=== PATIENT | male | born 1955 | race Caucasian/White ===

== ENCOUNTER 2018-01-24 08:00 | Outpatient (RCR) | payer BC, MEDICARE ==
[2016-11-29 17:23] VITALS: Ht 170.2 cm; Wt 67.2 kg
[2017-11-22 08:50] VITALS: BP 119/75
[2017-11-22] MEDS: ACETAMINOPHEN 325 MG TAB PO PRN (09:29)
[2017-11-22] MEDS: diphenhydrAMINE 25 MG CAP PO PRN (09:29)
[2017-11-22] MEDS: NS(*) 0.9% 500 ML BAG 500 ML IV PRN (09:30)
[2017-11-22] MEDS: HEPARIN FLSH (PORT) 500 UN/5ML IVP PRN (12:21)
[2017-11-22 12:25] VITALS: BP 107/74
--- NOTE | 2017-11-22 17:05 | ONCOLOGY FOLLOW UP NOTE ---
EVENT DATE: November 22, 2017 DIAGNOSES 1. Stage IV mantle cell lymphoma with bone marrow involvement. 2. Status post autologous stem cell transplant. 3. Recurrent diverticulitis. 4. Arthritis. 5. History of colonic polyp, tubulovillous adenoma, status post polypectomy January 2014. 6. History of minimal change disease of the kidney in 2004 with nephrotic syndrome, recovered completely. 7. Left-sided vestibular schwannoma, diagnosed September 2015. CHIEF COMPLAINT Patient is here today for cycle number 10 of maintenance rituximab therapy of his mantle cell lymphoma after autologous stem cell transplant. ONCOLOGY HISTORY The patient is a 61-year-old male who had a history of diverticulitis January 2014 and colonoscopy confirmed diagnosis with the presence of sigmoid mass. The patient was treated with antibiotics. In April 2015, the patient had recurrent left lower quadrant abdominal pain and colonoscopy showed 2 mm cecal polyps which were resected. The pathology came back positive for mantle cell lymphoma. Immunohistochemistry was positive for CD5, cyclin D1, CD20 and negative for CD10, CD23. Ki67 was 30%. Bone marrow aspiration biopsy done April 2015 was positive for 1% mantle cell lymphoma. Cytogenetics was negative. PET-CT scan done April 2015 showed descending colon mass of 6 cm with SUV of 7. The distal sigmoid colon 2.2 cm mass with SUV of 8. Retroperitoneal avid lymph nodes at the level of the left frontal hilum, largest 3 cm with SUV of 4, left inguinal lymph node was SUV2, probable subcapsular focus in the liver, right axillary lymph node with SUV2. The patient was diagnosed with stage 4E mantle cell lymphoma. Hepatitis panel was negative. The patient received chemotherapy with hyper-CVAD between May 2015 through September 2015. In September 2015, the patient developed sudden of left-sided hearing loss, and MRI showed left-sided vestibular schwannoma, and the patient was seen by a neurosurgeon, who recommended close observation and continued treatment for mantle cell lymphoma. His PET/CT scan September 2015 was normal except for left lower quadrant activity increased from recent exam. Previous SUV was 5.2 and the current one was 6.7. The patient had a colonoscopy September 2015 which was normal. His bone marrow aspiration biopsy September 2015 was also normal. September 2015, stem cells were collected and CD34 count was 12 by 10(6) per kg. On October 18, 2015, the patient had his autologous stem cell transplant with R-BEAM and the patient tolerated the transplant well except for rectal pain and bleeding, which resolved prior to discharge from the bone marrow transplant center. They recommended maintenance rituximab therapy after the autologous stem cell transplant. The patient started maintenance rituximab therapy on December 29, 2015. HISTORY OF PRESENT ILLNESS Patient is here today for cycle number 10 of maintenance rituximab therapy for his mantle cell lymphoma after autologous stem cell transplant. Patient is doing really very well currently, except for a flare-up of gout with pain in the left big toe recently. Other than that, he denies any B symptoms and his general condition is really good and stable. PAST MEDICAL HISTORY 1. Mantle cell lymphoma. 2. Recurrent diverticulitis. 3. Arthritis. 4. History of colon polyps. 5. History of minimal change disease of the kidney in 2014 with nephrotic syndrome, recovered completely. 6. Left sided vestibular schwannoma diagnosed September 2015. PAST SURGICAL HISTORY 1. Double hernias as a child. 2. Hernia repair in 2005. SOCIAL HISTORY The patient is . He has three sons and one daughter. He works in home improvement. He denies any abuse of tobacco, alcohol or drugs. He never smoked tobacco. FAMILY HISTORY Negative for cancer or blood diseases. CURRENT MEDICATIONS 1. Acyclovir 200 mg daily. 2. Diflucan 200 mg daily. 3. Probiotic one tablet by mouth every other day alternating with two tablets every other day. 4. Ativan 1 mg two times daily as needed for anxiety. 5. Protonix 40 mg daily. 6. Compazine 10 mg p.r.n. for nausea and vomiting q.6h. 7. Bactrim DS one tablet twice daily, two days per week. 8. Tapering doses of prednisone. ALLERGIES No known drug allergies. REVIEW OF SYSTEMS CONSTITUTIONAL: No appetite or weight change. No fever, chills or sweating. No recent infection. HEENT: Ears: No tinnitus or hearing problem. Nose: No nasal discharge or epistaxis. Throat: No sore throat or mouth ulcers. Eyes: No diplopia or visual changes. RESPIRATORY: No shortness of breath. No cough, expectoration or hemoptysis. CARDIOVASCULAR: No chest pain, orthopnea, or paroxysmal nocturnal dyspnea (PND) . No edema. No palpitations. GASTROINTESTINAL: He has a small bulge above the umbilicus. No nausea or vomiting. No diarrhea or constipation. No change in bowel movements. No heartburn or swallowing difficulties. No abdominal pain. No jaundice. No hematemesis, melena or rectal bleeding. GENITOURINARY: No hematuria or dysuria. MUSCULOSKELETAL: The patient has pain at the left big toe from flare-up of his gout recently . NEUROLOGICAL: He has headache and ringing in the left ear from his vestibular schwannoma on that side. HEMATOLOGIC/LYMPHATIC: No bleeding or easy bruising. No weakness. He has mild fatigue at times. No enlarged lymph nodes. SKIN: No skin rash or lumps. PSYCHIATRIC: No anxiety or depression. PHYSICAL EXAMINATION GENERAL: Looks stable. Well-developed, well-nourished, and in no acute distress. HEENT: Head: Atraumatic. No sinus tenderness to palpation. Eyes: No icterus or conjunctivitis. Mouth and throat: No oral thrush or mucositis. NECK: Supple. No cervical or supraclavicular lymphadenopathy. LUNGS: Clear to auscultation and percussion bilaterally. HEART: Regular rate and rhythm. No gallops, murmurs, clicks or rubs. ABDOMEN: Upper umbilical hernia just above the umbilicus is noted. EXTREMITIES: There is extensive edema of the legs bilaterally. LYMPHATICS: No peripheral lymphadenopathy. NEUROLOGICAL: Conscious, alert and oriented times three. No focal motor or sensory deficits. PSYCHIATRIC: Mood and affect appear normal. SKIN: No skin rash, bruise or purpuric eruption. DIAGNOSTIC DATA CBC showed a white count of 4.2, hemoglobin 16.7, hematocrit 48%, platelets 260, 000. Chem panel totally normal except BUN 27, blood sugar 137. LDH is normal at 501 and uric acid is normal at 5.5. ASSESSMENT 1. Stage IV E mantle cell lymphoma with low risk MIPI score. Patient completed two cycles of hyper-CVAD and attained a PET CT scan, negative complete remission. Subsequently he underwent autologous stem cell transplant after first complete remission, received October 18, 2015 after R-beam chemotherapy. PET CT scan and bone marrow aspiration biopsy done January 2016 were negative for recurrent disease. Patient started maintenance rituximab therapy December 29, 2015. He received nine courses so far and I am planning to proceed with his tenth course today. His general condition is actually much better than before and apart from flare-up of gout of his left big toe, patient does not have any other complaint today. He denies any B symptoms. I am planning to proceed with his rituximab therapy today. I will see him in two months prior to the next dose of rituximab with CBC, chem panel, LDH and uric acid. 2. Flare-up of acute gout of the left big toe. I am planning to start Indomethacin 15 mg three times daily for a few days until pain control. 3. Pulmonary embolism on Eliquis. 4. Schwannoma with cerebral symptoms and ringing of the ear. Patient received radiation therapy without improvement. 5. Recurrent diverticulitis of the colon with perforated colon due to diverticulitis, status post colectomy and taking down the colostomy. He is doing fine currently. 6. History of colon polyps, status post polypectomy in January 2014 for villous adenoma. 7. History of minimal change disease of the kidney and nephrotic syndrome in 2004, in complete remission. PLAN 1. Rituximab maintenance therapy. This will be cycle number 10. 2. Patient is to return in two months with CBC, chem panel, LDH, uric acid. 3. Indomethacin 25 mg three times daily for three to five days until pain control. 4. Patient is to contact us for any new concerns or complaints. MTDD
[~2018-01-24] VITALS: Ht 170.2 cm; Wt 67.2 kg
[~2018-01-24 08:00] MED LIST: ACYC-1 PO; ACYC800T99 PO; ALLO-119 PO; ALLO100T70 PO; ALTEPLASE RECOMB 2 MG VIAL IVP PRN; AMOX-559 PO; AMOX1TAB9 PO; APIX5TAB PO; AZI250 PO; AZIT-17 PO; BLOO-1318 MC; CA C1TAB6 PO; CALC-640 PO; CEP500 PO; CHOL400T24 PO; CIPR-344 PO; CLO10 MT; DEX1 PO; DEX4 PO; DEXTROSE 5%(*) 100 ML BAG 100 ML IVPB PRN; DOCU-416 PO; DOXY-179 PO; FLUC100T39 PO; FLUC200T56 PO; GLUC-198 PO; GUAI1TBM PO; HYDR-385 PO; HYDR-4309 PO; HYDR-6015 PO; HYDR-67 PO; IBUP600T22 PO; INSU100I30 SQ; LACT1CAP6 PO; LACTAID3000 UNI1 PO; LANC-1149 MC; LEVO-85 PO; LIDOCAINE/SOD BICARB 8.4% SYR ID PRN; LOR1; LOR1 PO; LOR5/325 PO; LORA-1456 PO; MELA1TAB24 PO; MELA1TAB27 PO; METH-543 PO; METR-1 PO; MOM PO; MULT1TAB54 PO; NEED1DIS64 MC; NO ROUTINE MEDS; NS(*) 0.9% 100 ML BAG 100 ML IVPB PRN; NYST100040 PO; ONDA4TAB97 PO; ONDA8TAB91 PO; OXYC-373 PO; PANT40TA65 PO; PEN400 PO; POTA20TA10 PO; PRE20 PO; PRE5 PO; PRED50TA22 PO; PROC10TA4 PO; PROC10TA95 PO; PROM-110 PO; SCOT TD; SIME80TA49 PO; SULF-198 PO; TOBROD OU; VALA500T63 PO; VITA-200 PO; WATER STERILE 10 ML VIAL IVP PRN; riTUXimab 500 MG/50 ML SDV 500 MG, riTUXimab 100 MG/10 ML SDV 200 MG in NS(*) 0.9% 1000... IV ONE; riTUXimab 500 MG/50 ML SDV 500 MG, riTUXimab 100 MG/10 ML SDV 200 MG in NS(*) 0.9% 500 ... IV ONE
[2018-01-24 08:23] VITALS: BP 109/83
[2018-01-24] MEDS: NS(*) 0.9% 500 ML BAG 500 ML IV PRN (08:30)
[2018-01-24] MEDS: diphenhydrAMINE 25 MG CAP PO PRN (09:19)
[2018-01-24] MEDS: ACETAMINOPHEN 325 MG TAB PO PRN (09:19)
[2018-01-24] MEDS ORDERED: riTUXimab 500 MG/50 ML SDV 500 MG, riTUXimab 100 MG/10 ML SDV 200 MG in NS(*) 0.9% 500 ... IV ONE (09:20)
[2018-01-24] MEDS: HEPARIN FLSH (PORT) 500 UN/5ML IVP PRN (12:28)
--- NOTE | 2018-01-24 18:50 | ONCOLOGY FOLLOW UP NOTE ---
EVENT DATE: January 24, 2018 DIAGNOSES 1. Stage IV mantle cell lymphoma with bone marrow involvement. 2. Status post autologous stem cell transplant. 3. Recurrent diverticulitis. 4. Arthritis. 5. History of colonic polyp, tubulovillous adenoma, status post polypectomy January 2014. 6. History of minimal change disease of the kidney in 2004 with nephrotic syndrome, recovered completely. 7. Left-sided vestibular schwannoma, diagnosed September 2015. CHIEF COMPLAINT Patient is here today for cycle number 11 of maintenance rituximab therapy of his mantle cell lymphoma after autologous stem cell transplant. ONCOLOGY HISTORY The patient is a 61-year-old male who had a history of diverticulitis January 2014 and colonoscopy confirmed diagnosis with the presence of sigmoid mass. The patient was treated with antibiotics. In April 2015, the patient had recurrent left lower quadrant abdominal pain and colonoscopy showed 2 mm cecal polyps which were resected. The pathology came back positive for mantle cell lymphoma. Immunohistochemistry was positive for CD5, cyclin D1, CD20 and negative for CD10, CD23. Ki67 was 30%. Bone marrow aspiration biopsy done April 2015 was positive for 1% mantle cell lymphoma. Cytogenetics was negative. PET-CT scan done April 2015 showed descending colon mass of 6 cm with SUV of 7. The distal sigmoid colon 2.2 cm mass with SUV of 8. Retroperitoneal avid lymph nodes at the level of the left frontal hilum, largest 3 cm with SUV of 4, left inguinal lymph node was SUV2, probable subcapsular focus in the liver, right axillary lymph node with SUV2. The patient was diagnosed with stage 4E mantle cell lymphoma. Hepatitis panel was negative. The patient received chemotherapy with hyper-CVAD between May 2015 through September 2015. In September 2015, the patient developed sudden of left-sided hearing loss, and MRI showed left-sided vestibular schwannoma, and the patient was seen by a neurosurgeon, who recommended close observation and continued treatment for mantle cell lymphoma. His PET/CT scan September 2015 was normal except for left lower quadrant activity increased from recent exam. Previous SUV was 5.2 and the current one was 6.7. The patient had a colonoscopy September 2015 which was normal. His bone marrow aspiration biopsy September 2015 was also normal. September 2015, stem cells were collected and CD34 count was 12 by 10(6) per kg. On October 18, 2015, the patient had his autologous stem cell transplant with R-BEAM and the patient tolerated the transplant well except for rectal pain and bleeding, which resolved prior to discharge from the bone marrow transplant center. They recommended maintenance rituximab therapy after the autologous stem cell transplant. The patient started maintenance rituximab therapy on December 29, 2015. HISTORY OF PRESENT ILLNESS Patient is here today for cycle number 11 of maintenance rituximab therapy for his mantle cell lymphoma. Patient is doing fine currently, except for catching cold two weeks ago. He has some nasal discharge with cough and expectoration. Other than that he is stable. PAST MEDICAL HISTORY 1. Mantle cell lymphoma. 2. Recurrent diverticulitis. 3. Arthritis. 4. History of colon polyps. 5. History of minimal change disease of the kidney in 2014 with nephrotic syndrome, recovered completely. 6. Left sided vestibular schwannoma diagnosed September 2015. PAST SURGICAL HISTORY 1. Double hernias as a child. 2. Hernia repair in 2005. SOCIAL HISTORY The patient is . He has three sons and one daughter. He works in [employer]. He denies any abuse of tobacco, alcohol or drugs. He never smoked tobacco. FAMILY HISTORY Negative for cancer or blood diseases. CURRENT MEDICATIONS 1. Acyclovir 200 mg daily. 2. Diflucan 200 mg daily. 3. Probiotic one tablet by mouth every other day alternating with two tablets every other day. 4. Ativan 1 mg two times daily as needed for anxiety. 5. Protonix 40 mg daily. 6. Compazine 10 mg p.r.n. for nausea and vomiting q.6h. 7. Bactrim DS one tablet twice daily, two days per week. 8. Tapering doses of prednisone. ALLERGIES No known drug allergies. REVIEW OF SYSTEMS CONSTITUTIONAL: No appetite or weight change. No fever, chills or sweating. No recent infection. HEENT: Ears: No tinnitus or hearing problem. Nose: He has nasal discharge. No epistaxis. Throat: No sore throat or mouth ulcers. Eyes: No diplopia or visual changes. RESPIRATORY: He has cough with expectoration. No shortness of breath. No hemoptysis. CARDIOVASCULAR: No chest pain, orthopnea, or paroxysmal nocturnal dyspnea (PND) . No edema. No palpitations. GASTROINTESTINAL: He has a small bulge above the umbilicus. No nausea or vomiting. No diarrhea or constipation. No change in bowel movements. No heartburn or swallowing difficulties. No abdominal pain. No jaundice. No hematemesis, melena or rectal bleeding. GENITOURINARY: No hematuria or dysuria. MUSCULOSKELETAL: The patient has pain at the left big toe from flare-up of his gout recently . NEUROLOGICAL: He has headache and ringing in the left ear from his vestibular schwannoma on that side. HEMATOLOGIC/LYMPHATIC: No bleeding or easy bruising. No weakness. He has mild fatigue at times. No enlarged lymph nodes. SKIN: No skin rash or lumps. PSYCHIATRIC: No anxiety or depression. PHYSICAL EXAMINATION GENERAL: Looks stable. Well-developed, well-nourished, and in no acute distress. VITAL SIGNS: Blood pressure 109/83, pulse 73 per minute, respirations 16 per minute, temperature 97.6, pulse ox 94% on room air. HEENT: Head: Atraumatic. No sinus tenderness to palpation. Eyes: No icterus or conjunctivitis. Mouth and throat: No oral thrush or mucositis. NECK: Supple. No cervical or supraclavicular lymphadenopathy. LUNGS: Clear to auscultation and percussion bilaterally. HEART: Regular rate and rhythm. No gallops, murmurs, clicks or rubs. ABDOMEN: Upper umbilical hernia just above the umbilicus is noted. EXTREMITIES: There is extensive edema of the legs bilaterally. LYMPHATICS: No peripheral lymphadenopathy. NEUROLOGICAL: Conscious, alert and oriented times three. No focal motor or sensory deficits. PSYCHIATRIC: Mood and affect appear normal. SKIN: No skin rash, bruise or purpuric eruption. DIAGNOSTIC DATA CBC showed a white count of 9.4, hemoglobin 15.3, hematocrit 43.8, platelets 307 ,000. Chem panel totally normal except BUN 23, AST 43, ALT 62 and LDH 755. ASSESSMENT 1. Stage IV E mantle cell lymphoma with low risk MIPI score. Patient completed two cycles of hyper-CVAD and attained a PET CT scan, negative complete remission. Subsequently he underwent autologous stem cell transplant after first complete remission, received October 18, 2015 after R-beam chemotherapy. PET CT scan and bone marrow aspiration biopsy done January 2016 were negative for recurrent disease. Patient started maintenance rituximab therapy December 29, 2015. He received 10 courses so far and I am planning to proceed with his eleventh cycle this time. He has only one cycle left to complete his maintenance rituximab therapy. I am planning to see him again in two months prior to the last cycle of maintenance rituximab therapy with CBC, chem panel, LDH, uric acid. Patient denies any B symptoms and he is doing fine currently. 2. Pulmonary embolism on Eliquis. 3. Schwannoma with cerebral symptoms and ringing of the ear. He received radiation therapy without improvement. 4. Recurrent diverticulitis of the colon with perforated colon due to diverticulitis, status post colectomy and taking down the colostomy. He is doing fine currently. 5. History of colon polyps, status post polypectomy in January 2014 for villous adenoma. 6. History of minimal change disease of the kidney and nephrotic syndrome in 2004, in remission. PLAN 1. Rituximab maintenance therapy. This will be cycle number 11. 2. Patient is to return in two months with CBC, chem panel, LDH, uric acid. 3. Patient is to contact us for any new concerns or complaints. MTDD
== END 2018-02-19 ==
LOC: ONC 08:00
PROVIDERS: ATTEND Internal Medicine Hematology
DX: Z51.11 Encounter for antineoplastic chemotherapy (principal); C83.19 Mantle cell lymphoma, extranodal and solid organ sites; D33.3 Benign neoplasm of cranial nerves; M10.072 Idiopathic gout, left ankle and foot; Z86.010 Personal history of colon polyps; Z94.84 Stem cells transplant status; K57.32 Diverticulitis of large intestine without perforation or abscess without bleeding; M19.90 Unspecified osteoarthritis, unspecified site; Z79.899 Other long term (current) drug therapy; R51 Headache; H93.12 Tinnitus, left ear; K42.9 Umbilical hernia without obstruction or gangrene; R60.0 Localized edema
CPT/HCPCS: 83615; 84550; 85027; 96413; 96415; A9270; J1642; J7040; J9310; Q0163; 82040; 82247; 82310; 82374; 82435; 82565; 82947; 84075; 84132; 84155; 84295; 84450; 84460; 84520

== ENCOUNTER 2018-03-21 08:06 | Outpatient (RCR) | payer MEDICARE ==
[2016-11-29 17:23] VITALS: Ht 170.2 cm; Wt 68.1 kg
[~2018-03-21] VITALS: Ht 170.2 cm; Wt 68.1 kg
[~2018-03-21 08:06] MED LIST changes: +HEPARIN FLSH (PORT) 500 UN/5ML IVP PRN; -PEN400 PO; +PENT400T57 PO; +PROC-5 PO; -PROC10TA95 PO; +WATER FOR INJ,STERILE 20 ML IVP PRN; -WATER STERILE 10 ML VIAL IVP PRN; -riTUXimab 500 MG/50 ML SDV 500 MG, riTUXimab 100 MG/10 ML SDV 200 MG in NS(*) 0.9% 1000... IV ONE; -riTUXimab 500 MG/50 ML SDV 500 MG, riTUXimab 100 MG/10 ML SDV 200 MG in NS(*) 0.9% 500 ... IV ONE
[2018-03-21 08:18] VITALS: BP 123/75
[2018-03-21] MEDS ORDERED: diphenhydrAMINE 25 MG CAP PO PRN (09:25)
[2018-03-21] MEDS: NS(*) 0.9% 500 ML BAG 500 ML IV PRN (09:34)
[2018-03-21] MEDS ORDERED: riTUXimab 500 MG/50 ML SDV 500 MG, riTUXimab 100 MG/10 ML SDV 200 MG in NS(*) 0.9% 1000... IV ONE (09:50)
[2018-03-21 13:12] VITALS: BP 140/81
--- NOTE | 2018-03-21 15:19 | ONCOLOGY FOLLOW UP NOTE ---
EVENT DATE: March 21, 2018 DIAGNOSES 1. Stage IV mantle cell lymphoma with bone marrow involvement. 2. Status post autologous stem cell transplant. 3. Recurrent diverticulitis. 4. Arthritis. 5. History of colonic polyp, tubulovillous adenoma, status post polypectomy January 2014. 6. History of minimal change disease of the kidney in 2004 with nephrotic syndrome, recovered completely. 7. Left-sided vestibular schwannoma, diagnosed September 2015. CHIEF COMPLAINT Patient is here today for cycle number 12 of maintenance rituximab therapy of his mantle cell lymphoma after autologous stem cell transplant. ONCOLOGY HISTORY The patient is a 61-year-old male who had a history of diverticulitis January 2014 and colonoscopy confirmed diagnosis with the presence of sigmoid mass. The patient was treated with antibiotics. In April 2015, the patient had recurrent left lower quadrant abdominal pain and colonoscopy showed 2 mm cecal polyps which were resected. The pathology came back positive for mantle cell lymphoma. Immunohistochemistry was positive for CD5, cyclin D1, CD20 and negative for CD10, CD23. Ki67 was 30%. Bone marrow aspiration biopsy done April 2015 was positive for 1% mantle cell lymphoma. Cytogenetics was negative. PET-CT scan done April 2015 showed descending colon mass of 6 cm with SUV of 7. The distal sigmoid colon 2.2 cm mass with SUV of 8. Retroperitoneal avid lymph nodes at the level of the left frontal hilum, largest 3 cm with SUV of 4, left inguinal lymph node was SUV2, probable subcapsular focus in the liver, right axillary lymph node with SUV2. The patient was diagnosed with stage 4E mantle cell lymphoma. Hepatitis panel was negative. The patient received chemotherapy with hyper-CVAD between May 2015 through September 2015. In September 2015, the patient developed sudden of left-sided hearing loss, and MRI showed left-sided vestibular schwannoma, and the patient was seen by a neurosurgeon, who recommended close observation and continued treatment for mantle cell lymphoma. His PET/CT scan September 2015 was normal except for left lower quadrant activity increased from recent exam. Previous SUV was 5.2 and the current one was 6.7. The patient had a colonoscopy September 2015 which was normal. His bone marrow aspiration biopsy September 2015 was also normal. September 2015, stem cells were collected and CD34 count was 12 by 10(6) per kg. On October 18, 2015, the patient had his autologous stem cell transplant with R-BEAM and the patient tolerated the transplant well except for rectal pain and bleeding, which resolved prior to discharge from the bone marrow transplant center. They recommended maintenance rituximab therapy after the autologous stem cell transplant. The patient started maintenance rituximab therapy on December 29, 2015. The patient completed 12 courses of rituximab therapy on March 18, 2018. HISTORY OF PRESENT ILLNESS Patient is here today for cycle number 12 of maintenance rituximab therapy for his mantle cell lymphoma. He is doing fine currently, except having runny nose , cough and expectoration sometimes. He has also some pain in his hands. PAST MEDICAL HISTORY 1. Mantle cell lymphoma. 2. Recurrent diverticulitis. 3. Arthritis. 4. History of colon polyps. 5. History of minimal change disease of the kidney in 2014 with nephrotic syndrome, recovered completely. 6. Left sided vestibular schwannoma diagnosed September 2015. PAST SURGICAL HISTORY 1. Double hernias as a child. 2. Hernia repair in 2005. SOCIAL HISTORY The patient is . He has three sons and one daughter. He works in [employer]. He denies any abuse of tobacco, alcohol or drugs. He never smoked tobacco. FAMILY HISTORY Negative for cancer or blood diseases. CURRENT MEDICATIONS 1. Acyclovir 200 mg daily. 2. Diflucan 200 mg daily. 3. Probiotic one tablet by mouth every other day alternating with two tablets every other day. 4. Ativan 1 mg two times daily as needed for anxiety. 5. Protonix 40 mg daily. 6. Compazine 10 mg p.r.n. for nausea and vomiting q.6h. 7. Bactrim DS one tablet twice daily, two days per week. 8. Tapering doses of prednisone. ALLERGIES No known drug allergies. REVIEW OF SYSTEMS CONSTITUTIONAL: No appetite or weight change. No fever, chills or sweating. No recent infection. HEENT: Ears: No tinnitus or hearing problem. Nose: He has nasal discharge. No epistaxis. Throat: No sore throat or mouth ulcers. Eyes: No diplopia or visual changes. RESPIRATORY: He has cough with expectoration. No shortness of breath. No hemoptysis. CARDIOVASCULAR: No chest pain, orthopnea, or paroxysmal nocturnal dyspnea (PND) . No edema. No palpitations. GASTROINTESTINAL: He has a small bulge above the umbilicus. No nausea or vomiting. No diarrhea or constipation. No change in bowel movements. No heartburn or swallowing difficulties. No abdominal pain. No jaundice. No hematemesis, melena or rectal bleeding. GENITOURINARY: No hematuria or dysuria. MUSCULOSKELETAL: He has pain in the hands. NEUROLOGICAL: He has headache and ringing in the left ear from his vestibular schwannoma on that side. HEMATOLOGIC/LYMPHATIC: No bleeding or easy bruising. No weakness. He has mild fatigue at times. No enlarged lymph nodes. SKIN: No skin rash or lumps. PSYCHIATRIC: No anxiety or depression. PHYSICAL EXAMINATION GENERAL: Looks stable. Well-developed, well-nourished, and in no acute distress. VITAL SIGNS: Blood pressure 123/75, pulse 96 per minute, respirations 14 per minute, temperature 98.2, pulse ox 93% on room air. HEENT: Head: Atraumatic. No sinus tenderness to palpation. Eyes: No icterus or conjunctivitis. Mouth and throat: No oral thrush or mucositis. NECK: Supple. No cervical or supraclavicular lymphadenopathy. LUNGS: Clear to auscultation and percussion bilaterally. HEART: Regular rate and rhythm. No gallops, murmurs, clicks or rubs. ABDOMEN: Upper umbilical hernia just above the umbilicus is noted. EXTREMITIES: There is extensive edema of the legs bilaterally. LYMPHATICS: No peripheral lymphadenopathy. NEUROLOGICAL: Conscious, alert and oriented times three. No focal motor or sensory deficits. PSYCHIATRIC: Mood and affect appear normal. SKIN: No skin rash, bruise or purpuric eruption. DIAGNOSTIC DATA CBC showed white count 10.1, hemoglobin 15.8, hematocrit 45.2, platelets 287, 000. ASSESSMENT 1. Stage IV E mantle cell lymphoma with low risk MIPI score. Patient completed two cycles of hyper-CVAD and attained a PET CT scan, negative complete remission. Subsequently he underwent autologous stem cell transplant after first complete remission, received October 18, 2015 after R-beam chemotherapy. PET CT scan and bone marrow aspiration biopsy done January 2016 were negative for recurrent disease. Patient started maintenance rituximab therapy December 29, 2015. He received 11 courses so far and I am planning to proceed with his last course which is number 12 today on March 21, 2018. I am planning to see him next visit in three months with CBC, chem panel, LDH and uric acid. Patient tolerated treatment so far very well. He is complete remission and denies any B symptoms. 2. Pulmonary embolism on Eliquis. 3. Schwannoma with cerebral symptoms and ringing of the ear. He received radiation therapy without improvement. 4. Recurrent diverticulitis of the colon with perforated colon status post colectomy and taking down the colostomy. He is doing fine currently. 5. History of colon polyps, status post polypectomy in January 2014 for villous adenoma. 6. History of minimal change disease of the kidney and nephrotic syndrome in 2004, in remission. PLAN 1. Rituximab maintenance therapy. This will be cycle number 12. 2. Patient is to return in three months with CBC, chem panel, LDH, uric acid. 3. Patient is to contact us for any new concerns or complaints. MTDD
== END 2018-06-18 ==
LOC: ONC 08:06
PROVIDERS: ATTEND Internal Medicine Hematology
DX: Z51.11 Encounter for antineoplastic chemotherapy (principal); C83.19 Mantle cell lymphoma, extranodal and solid organ sites; I26.99 Other pulmonary embolism without acute cor pulmonale; Z79.01 Long term (current) use of anticoagulants; D36.10 Benign neoplasm of peripheral nerves and autonomic nervous system, unspecified
CPT/HCPCS: 83615; 84550; 85027; 96413; 96415; J1642; J7030; J7040; J9310; Q0163; 82040; 82247; 82310; 82374; 82435; 82565; 82947; 84075; 84132; 84155; 84295; 84450; 84460; 84520

== ENCOUNTER → 2018-09-09 | Outpatient (CLI) | payer MEDICARE ==
[2016-11-29 17:23] VITALS: BMI 21.0
[~2018-09-09] MED LIST changes: -ALTEPLASE RECOMB 2 MG VIAL IVP PRN; +AMOX-362 PO; -DEXTROSE 5%(*) 100 ML BAG 100 ML IVPB PRN; -HEPARIN FLSH (PORT) 500 UN/5ML IVP PRN; -HYDR-4309 PO; +HYDR-653 PO; -LIDOCAINE/SOD BICARB 8.4% SYR ID PRN; -NS(*) 0.9% 100 ML BAG 100 ML IVPB PRN; -WATER FOR INJ,STERILE 20 ML IVP PRN
[2018-09-09 09:32] VITALS: BP 139/77
== END ==
LOC: SPU 09:07
PROVIDERS: ATTEND Nurse Practitioner Family
DX: Z12.5 Encounter for screening for malignant neoplasm of prostate (principal); Z00.00 Encounter for general adult medical examination without abnormal findings; R30.1 Vesical tenesmus; E78.00 Pure hypercholesterolemia, unspecified
CPT/HCPCS: 36591; 82465; 82607; 83036; 83718; 84153; 84478

== ENCOUNTER 2018-10-03 09:26 | Outpatient (RCR) | payer MEDICARE ==
[2016-11-29 17:23] VITALS: Wt 74.0 kg
[2018-07-09 08:56] VITALS: BP 113/77
[2018-07-09] MEDS: HEPARIN FLSH (PORT) 500 UN/5ML IVP PRN (09:08)
[2018-07-09 09:17] LABS: PLATELET COUNT, AUTOMATED 306 K/uL (150-450)
[2018-07-11 09:31] VITALS: BP 123/80
--- NOTE | 2018-07-11 16:11 | ONCOLOGY FOLLOW UP NOTE ---
EVENT DATE: July 11, 2018 DIAGNOSES 1. Stage IV mantle cell lymphoma with bone marrow involvement. 2. Status post autologous stem cell transplant. 3. Recurrent diverticulitis. 4. Arthritis. 5. History of colonic polyp, tubulovillous adenoma, status post polypectomy January 2014. 6. History of minimal change disease of the kidney in 2004 with nephrotic syndrome, recovered completely. 7. Left-sided vestibular schwannoma, diagnosed September 2015. CHIEF COMPLAINT Patient is here today for followup of his mantle cell lymphoma after autologous stem cell transplant and maintenance rituximab therapy. . ONCOLOGY HISTORY The patient is a 62-year-old male who had a history of diverticulitis January 2014 and colonoscopy confirmed diagnosis with the presence of sigmoid mass. The patient was treated with antibiotics. In April 2015, the patient had recurrent left lower quadrant abdominal pain and colonoscopy showed 2 mm cecal polyps which were resected. The pathology came back positive for mantle cell lymphoma. Immunohistochemistry was positive for CD5, cyclin D1, CD20 and negative for CD10, CD23. Ki67 was 30%. Bone marrow aspiration biopsy done April 2015 was positive for 1% mantle cell lymphoma. Cytogenetics was negative. PET-CT scan done April 2015 showed descending colon mass of 6 cm with SUV of 7. The distal sigmoid colon 2.2 cm mass with SUV of 8. Retroperitoneal avid lymph nodes at the level of the left frontal hilum, largest 3 cm with SUV of 4, left inguinal lymph node was SUV2, probable subcapsular focus in the liver, right axillary lymph node with SUV2. The patient was diagnosed with stage 4E mantle cell lymphoma. Hepatitis panel was negative. The patient received chemotherapy with hyper-CVAD between May 2015 through September 2015. In September 2015, the patient developed sudden of left-sided hearing loss, and MRI showed left-sided vestibular schwannoma, and the patient was seen by a neurosurgeon, who recommended close observation and continued treatment for mantle cell lymphoma. His PET/CT scan September 2015 was normal except for left lower quadrant activity increased from recent exam. Previous SUV was 5.2 and the current one was 6.7. The patient had a colonoscopy September 2015 which was normal. His bone marrow aspiration biopsy September 2015 was also normal. September 2015, stem cells were collected and CD34 count was 12 by 10(6) per kg. On October 18, 2015, the patient had his autologous stem cell transplant with R-BEAM and the patient tolerated the transplant well except for rectal pain and bleeding, which resolved prior to discharge from the bone marrow transplant center. They recommended maintenance rituximab therapy after the autologous stem cell transplant. The patient started maintenance rituximab therapy on December 29, 2015. The patient completed 12 courses of rituximab therapy on March 18, 2018. HISTORY OF PRESENT ILLNESS Patient is here today for followup of his mantle cell lymphoma after autologous stem cell transplant and maintenance rituximab therapy. He is doing fine currently except for nasal discharge, cough with expectoration. He has some pain in his joints from arthritis. He has also occasional fatigue. PAST MEDICAL HISTORY 1. Mantle cell lymphoma. 2. Recurrent diverticulitis. 3. Arthritis. 4. History of colon polyps. 5. History of minimal change disease of the kidney in 2014 with nephrotic syndrome, recovered completely. 6. Left sided vestibular schwannoma diagnosed September 2015. PAST SURGICAL HISTORY 1. Double hernias as a child. 2. Hernia repair in 2005. SOCIAL HISTORY The patient is . He has three sons and one daughter. He works in home improvement. He denies any abuse of tobacco, alcohol or drugs. He never smoked tobacco. FAMILY HISTORY Negative for cancer or blood diseases. CURRENT MEDICATIONS 1. Acyclovir 200 mg daily. 2. Diflucan 200 mg daily. 3. Probiotic one tablet by mouth every other day alternating with two tablets every other day. 4. Ativan 1 mg two times daily as needed for anxiety. 5. Protonix 40 mg daily. 6. Compazine 10 mg p.r.n. for nausea and vomiting q.6h. 7. Bactrim DS one tablet twice daily, two days per week. 8. Tapering doses of prednisone. ALLERGIES No known drug allergies. REVIEW OF SYSTEMS CONSTITUTIONAL: No appetite or weight change. No fever, chills or sweating. No recent infection. HEENT: Ears: No tinnitus or hearing problem. Nose: He has nasal discharge. No epistaxis. Throat: No sore throat or mouth ulcers. Eyes: No diplopia or visual changes. RESPIRATORY: He has cough with expectoration. No shortness of breath. No hemoptysis. CARDIOVASCULAR: No chest pain, orthopnea, or paroxysmal nocturnal dyspnea (PND). No edema. No palpitations. GASTROINTESTINAL: He has a small bulge above the umbilicus. No nausea or vomiting. No diarrhea or constipation. No change in bowel movements. No heartburn or swallowing difficulties. No abdominal pain. No jaundice. No hematemesis, melena or rectal bleeding. GENITOURINARY: No hematuria or dysuria. MUSCULOSKELETAL: He has arthritis. NEUROLOGICAL: He has headache and ringing in the left ear from his vestibular schwannoma on that side. HEMATOLOGIC/LYMPHATIC: No bleeding or easy bruising. No weakness. He has occasional fatigue. No enlarged lymph nodes. SKIN: No skin rash or lumps. PSYCHIATRIC: No anxiety or depression. PHYSICAL EXAMINATION GENERAL: Looks stable. Well-developed, well-nourished, and in no acute distress. VITAL SIGNS: Blood pressure 123/80, pulse 88 per minute, respirations 16 per minute, temperature 97.7, pulse ox 93% on room air. HEENT: Head: Atraumatic. No sinus tenderness to palpation. Eyes: No icterus or conjunctivitis. Mouth and throat: No oral thrush or mucositis. NECK: Supple. No cervical or supraclavicular lymphadenopathy. LUNGS: Clear to auscultation and percussion bilaterally. HEART: Regular rate and rhythm. No gallops, murmurs, clicks or rubs. ABDOMEN: Upper umbilical hernia just above the umbilicus is noted. EXTREMITIES: There is extensive edema of the legs bilaterally. LYMPHATICS: No peripheral lymphadenopathy. NEUROLOGICAL: Conscious, alert and oriented times three. No focal motor or sensory deficits. PSYCHIATRIC: Mood and affect appear normal. SKIN: No skin rash, bruise or purpuric eruption. DIAGNOSTIC DATA CBC showed white count 9.5, hemoglobin 16.2, hematocrit 46.1, platelets 306,000. Chem panel totally normal except blood sugar 126, total protein 6.1. ASSESSMENT 1. Stage IV E mantle cell lymphoma with low risk MIPI score. Patient completed two cycles of hyper-CVAD and attained a PET CT scan, negative, complete remission. Subsequently he underwent autologous stem cell transplant after complete remission, received October 18, 2015 after R-beam chemotherapy. PET CT scan and bone marrow aspiration biopsy done January 2016 were negative for recurrent disease. Patient started maintenance rituximab therapy December 29, 2015 and he completed 12 courses of rituximab every two months on March 21, 2018. He is currently in complete remission. I am planning to continue surveillance. I will see him again in three months with CBC, chem panel, LDH, uric acid. We will look for revaccinating him after his autologous stem cell transplant and rituximab therapy. 2. Pulmonary embolism, on Eliquis. 3. Schwannoma with cerebral symptoms and ringing of the ear. The patient received radiation therapy without improvement. 4. Recurrent diverticulitis of the colon with perforation of the colon, status post colectomy and taking down the colostomy. Doing fine currently. 5. History of colon polyps, status post polypectomy in January 2014 for villous adenoma. 6. History of minimal change disease of the kidney and nephrotic syndrome in 2004, currently in remission. PLAN 1. Continue followup. 2. Patient to return in three months with CBC, chem panel, LDH, uric acid. 3. Patient is to contact us for any new concerns or complaints. MTDD
[2018-09-09] MEDS: HEPARIN FLSH (PORT) 500 UN/5ML IVP PRN (12:24)
[2018-10-01 09:03] VITALS: BP 113/82
[2018-10-01] MEDS: HEPARIN FLSH (PORT) 500 UN/5ML IVP PRN (09:12)
[2018-10-01 09:24] LABS: PLATELET COUNT, AUTOMATED 286 K/uL (150-450)
[~2018-10-03 09:26] MED LIST changes: +ALTEPLASE RECOMB 2 MG VIAL IVP PRN; +DEXTROSE 5%(*) 100 ML BAG 100 ML IVPB PRN; +LIDOCAINE/SOD BICARB 8.4% SYR ID PRN; +NS(*) 0.9% 100 ML BAG 100 ML IVPB PRN; +NS(*) 0.9% 500 ML BAG 500 ML IV PRN; +WATER FOR INJ,STERILE 20 ML IVP PRN
[2018-10-03 09:43] VITALS: BP 143/86
--- NOTE | 2018-10-04 07:47 | [facility] ONCOLOGY NOTE ---
EVENT DATE: October 03, 2018 DIAGNOSES 1. Stage IV mantle cell lymphoma with bone marrow involvement. 2. Status post autologous stem cell transplant. 3. Recurrent diverticulitis. 4. Arthritis. 5. History of colonic polyp, tubulovillous adenoma, status post polypectomy January 2014. 6. History of minimal change disease of the kidney in 2004 with nephrotic syndrome, recovered completely. 7. Left-sided vestibular schwannoma, diagnosed September 2015. CHIEF COMPLAINT Patient is here today for followup of his mantle cell lymphoma after autologous stem cell transplant and maintenance rituximab therapy. . ONCOLOGY HISTORY The patient is a 62-year-old male who had a history of diverticulitis January 2014 and colonoscopy confirmed diagnosis with the presence of sigmoid mass. The patient was treated with antibiotics. In April 2015, the patient had recurrent left lower quadrant abdominal pain and colonoscopy showed 2 mm cecal polyps which were resected. The pathology came back positive for mantle cell lymphoma. Immunohistochemistry was positive for CD5, cyclin D1, CD20 and negative for CD10, CD23. Ki67 was 30%. Bone marrow aspiration biopsy done April 2015 was positive for 1% mantle cell lymphoma. Cytogenetics was negative. PET-CT scan done April 2015 showed descending colon mass of 6 cm with SUV of 7. The distal sigmoid colon 2.2 cm mass with SUV of 8. Retroperitoneal avid lymph nodes at the level of the left frontal hilum, largest 3 cm with SUV of 4, left inguinal lymph node was SUV2, probable subcapsular focus in the liver, right axillary lymph node with SUV2. The patient was diagnosed with stage 4E mantle cell lymphoma. Hepatitis panel was negative. The patient received chemotherapy with hyper-CVAD between May 2015 through September 2015. In September 2015, the patient developed sudden of left-sided hearing loss, and MRI showed left-sided vestibular schwannoma, and the patient was seen by a neurosurgeon, who recommended close observation and continued treatment for mantle cell lymphoma. His PET/CT scan September 2015 was normal except for left lower quadrant activity increased from recent exam. Previous SUV was 5.2 and the current one was 6.7. The patient had a colonoscopy September 2015 which was normal. His bone marrow aspiration biopsy September 2015 was also normal. September 2015, stem cells were collected and CD34 count was 12 by 10(6) per kg. On October 18, 2015, the patient had his autologous stem cell transplant with R-BEAM and the patient tolerated the transplant well except for rectal pain and bleeding, which resolved prior to discharge from the bone marrow transplant center. They recommended maintenance rituximab therapy after the autologous stem cell transplant. The patient started maintenance rituximab therapy on December 29, 2015. The patient completed 12 courses of rituximab therapy on March 18, 2018. HISTORY OF PRESENT ILLNESS Patient is here today for followup of his mantle cell lymphoma after autologous stem cell transplant and maintenance rituximab therapy. He is doing fine currently. He has some sinus congestion. He has generalized aches. He has numbness in the left of his face recently and he has occasional headaches. PAST MEDICAL HISTORY 1. Mantle cell lymphoma. 2. Recurrent diverticulitis. 3. Arthritis. 4. History of colon polyps. 5. History of minimal change disease of the kidney in 2014 with nephrotic syndrome, recovered completely. 6. Left sided vestibular schwannoma diagnosed September 2015. PAST SURGICAL HISTORY 1. Double hernias as a child. 2. Hernia repair in 2005. SOCIAL HISTORY The patient is . He has three sons and one daughter. He works in home improvement. He denies any abuse of tobacco, alcohol or drugs. He never smoked tobacco. FAMILY HISTORY Negative for cancer or blood diseases. CURRENT MEDICATIONS 1. Acyclovir 200 mg daily. 2. Diflucan 200 mg daily. 3. Probiotic one tablet by mouth every other day alternating with two tablets every other day. 4. Ativan 1 mg two times daily as needed for anxiety. 5. Protonix 40 mg daily. 6. Compazine 10 mg p.r.n. for nausea and vomiting q.6h. 7. Bactrim DS one tablet twice daily, two days per week. 8. Tapering doses of prednisone. ALLERGIES No known drug allergies. REVIEW OF SYSTEMS CONSTITUTIONAL: No appetite or weight change. No fever, chills or sweating. No recent infection. HEENT: Ears: No tinnitus or hearing problem. Nose: He has sinus congestion. Throat: No sore throat or mouth ulcers. Eyes: No diplopia or visual changes. RESPIRATORY: He has cough with expectoration. No shortness of breath. No hemoptysis. CARDIOVASCULAR: No chest pain, orthopnea, or paroxysmal nocturnal dyspnea (PND). No edema. No palpitations. GASTROINTESTINAL: He has a small bulge above the umbilicus. No nausea or vomiting. No diarrhea or constipation. No change in bowel movements. No heartburn or swallowing difficulties. No abdominal pain. No jaundice. No hematemesis, melena or rectal bleeding. GENITOURINARY: No hematuria or dysuria. MUSCULOSKELETAL: He has generalized joint pains. NEUROLOGICAL: He has numbness over the left side of the face recently and he has occasional headache. HEMATOLOGIC/LYMPHATIC: No bleeding or easy bruising. No weakness. He has occasional fatigue. No enlarged lymph nodes. SKIN: No skin rash or lumps. PSYCHIATRIC: No anxiety or depression. PHYSICAL EXAMINATION GENERAL: Looks stable. Well-developed, well-nourished, and in no acute distress. VITAL SIGNS: Blood pressure 143/86, pulse 75 per minute, respirations 16 per minute, temperature 96.6, pulse ox 94% on room air. HEENT: Head: Atraumatic. No sinus tenderness to palpation. Eyes: No icterus or conjunctivitis. Mouth and throat: No oral thrush or mucositis. NECK: Supple. No cervical or supraclavicular lymphadenopathy. LUNGS: Clear to auscultation and percussion bilaterally. HEART: Regular rate and rhythm. No gallops, murmurs, clicks or rubs. ABDOMEN: Upper umbilical hernia just above the umbilicus is noted. EXTREMITIES: There is extensive edema of the legs bilaterally. LYMPHATICS: No peripheral lymphadenopathy. NEUROLOGICAL: Conscious, alert and oriented times three. No focal motor or sensory deficits. PSYCHIATRIC: Mood and affect appear normal. SKIN: No skin rash, bruise or purpuric eruption. DIAGNOSTIC DATA CBC showed white count 6.2, hemoglobin 16.3, hematocrit 48%, platelets 286,000. Chem panel totally normal except BUN 24, total protein 6.1. Other parameters are normal. ASSESSMENT 1. Stage IV E mantle cell lymphoma with low risk MIPI score. Patient completed two cycles of hyper-CVAD and attained a PET CT scan, negative, complete remission. Subsequently, he underwent autologous stem cell transplant after complete remission, received October 18, 2015 after R-beam chemotherapy. PET/CT scan and bone marrow aspiration biopsy done January 2016 were negative for recurrent disease. Patient started maintenance rituximab therapy December 29, 2015 and he completed 12 courses of rituximab every two months on March 21, 2018. He is currently in complete remission. I am planning to continue surveillance. I will see him again in four months with CBC, chem panel, LDH and uric acid. 2. Pulmonary embolism, on Eliquis. 3. Schwannoma with cerebral symptoms and ringing of the ear. Currently with recent numbness of the left side of the face and for this reason I am planning to check an MRI of the brain. 4. Recurrent diverticulitis of the colon with perforation of the colon, status post colectomy and taking down colostomy, doing fine 5. History of colon polyps, status post polypectomy in January 2014 for villous adenoma. 6. History of minimal change disease of the kidney with nephrotic syndrome in 2004, currently in remission. PLAN 1. MRI of the brain with and without contrast. 2. Patient to return in four months with CBC, chem panel, LDH, uric acid. 3. Patient is to contact us for any new concerns or complaints. NITISHD
[2018-10-08] MEDS ORDERED: LORA10CA3 PO (13:09)
[2018-10-08] MEDS ORDERED: ACET-2043 PO (13:10)
== END 2018-10-06 ==
LOC: ONC 09:26
PROVIDERS: ATTEND Internal Medicine Hematology
DX: Z51.11 Encounter for antineoplastic chemotherapy (principal); C83.19 Mantle cell lymphoma, extranodal and solid organ sites; I26.99 Other pulmonary embolism without acute cor pulmonale; Z79.01 Long term (current) use of anticoagulants; D36.10 Benign neoplasm of peripheral nerves and autonomic nervous system, unspecified; Z94.84 Stem cells transplant status; K57.92 Diverticulitis of intestine, part unspecified, without perforation or abscess without bleeding
CPT/HCPCS: 36591; 83615; 84550; 85025; G0463; J1642; 82040; 82247; 82310; 82374; 82435; 82565; 82947; 84075; 84132; 84155; 84295; 84450; 84460; 84520; 99212

== ENCOUNTER 2018-10-22 01:39 | Day surgery (SDC) | payer BC, MEDICARE ==
[2016-11-29 17:23] VITALS: Ht 170.2 cm; Wt 68.0 kg
[~2018-10-22] VITALS: Ht 170.2 cm; Wt 68.0 kg
[~2018-10-22 01:39] MED LIST changes: +ACET-2043 PO; -ALTEPLASE RECOMB 2 MG VIAL IVP PRN; -DEXTROSE 5%(*) 100 ML BAG 100 ML IVPB PRN; -LIDOCAINE/SOD BICARB 8.4% SYR ID PRN; +LORA10CA3 PO; -NS(*) 0.9% 100 ML BAG 100 ML IVPB PRN; -NS(*) 0.9% 500 ML BAG 500 ML IV PRN; -WATER FOR INJ,STERILE 20 ML IVP PRN
[2018-10-22] MEDS ORDERED: LIDOCAINE MPF 1% 5 ML VIAL ONE (07:41)
[2018-10-22] MEDS ORDERED: PROPOFOL EMUL(*) 10MG/ML 20 ML 60 ML ONE (07:41)
[2018-10-22] MEDS ORDERED: LIDOCAINE/SOD BICARB 8.4% SYR ID ONE (08:10)
[2018-10-22] MEDS ORDERED: NORMOSOL R SOLN(*) 1000 ML BAG 1,000 ML IV PRN (08:10)
[2018-10-22 08:25] VITALS: BP 129/81
[2018-10-22 09:49] VITALS: BP 98/70
--- NOTE | 2018-10-22 09:58 | Short(Outpt) Discharge Summary ---
Discharge Summary Reason for Hosp/Final Diag: (1) History of colon polyps Status: Chronic Hospital Course & Plan: Colonoscopy with polypectomy x3 completed without problems. Departure Discharge to: Home, Self Care Discharge Instructions Home Meds Active Scripts Acyclovir (ACYCLOVIR) 200 Mg Capsule, 800 MG PO BID, #240 CAP 6 Refills Prov:MANA AYALA [facility], [facility] 07/30/17 Allopurinol (ALLOPURINOL) 100 Mg Tablet, 100 MG PO QDAY, #90 TAB 3 Refills Prov:MANA AYALA [facility], [facility] 07/30/17 Fluconazole (FLUCONAZOLE) 200 Mg Tablet, 1 TAB PO QDAY, #60 TAB 3 Refills Prov:MANA AYALA Yari [facility] 06/04/17 Pantoprazole Sodium (PANTOPRAZOLE SODIUM) 40 Mg Tablet.dr, 40 MG PO QDAY, #30 TAB.SR 6 Refills Prov:MANA AYALA Yari [facility] 08/30/16 Reported Medications Acetaminophen (ACETAMINOPHEN) 500 Mg Tablet, 1000 MG PO DAILY PRN for PAIN, TAB 10/08/18 Loratadine (CLARITIN) 10 Mg Capsule, 10 MG PO DAILY, CAPSULE 10/08/18 Ca Carbonate/Vitamin D3/Vit K (CALCIUM + D SOFT CHEWABLE TAB) 1 Each Tab.chew, 1 EACH PO DAILY, TAB.CHEW 08/09/16 Multivitamin (MULTI-VITAMIN DAILY) 1 Each Tablet, 1 EACH PO DAILY 09/08/15 Diet: Regular Activity: As Tolerated Special Instructions: Your colonoscopy was completed without any problems and your prep was excellent (Good Job!!). I removed 3 small polyps from your colon and they were sent to pathology. My office will call you in the next week or two to let you know what the polyps are but, in any case, your next colonoscopy should be in 5 years due to your previous history of colon polyps. ZHEN GHOSH MD Oct 22, 2018 09:58
[2018-10-22 10:00] VITALS: BP 99/74
[2018-10-22 10:42] VITALS: BP 98/72
[2018-10-22 10:45] VITALS: BP 99/76
== END 2018-10-22 11:00 | disposition home or self-care (01) ==
LOC: OR 01:39
PROVIDERS: ATTEND Surgery
DX: Z12.11 Encounter for screening for malignant neoplasm of colon (principal); D12.0 Benign neoplasm of cecum; Z86.010 Personal history of colon polyps
CPT/HCPCS: 00811; 45385; 88305; J2001; J2704

== ENCOUNTER → 2018-12-08 | Outpatient (CLI) | payer MEDICARE ==
[2016-11-29 17:23] VITALS: BMI 21.0
--- NOTE | 2018-12-08 15:50 | RADIOLOGY IMAGING REPORT ---
FACILITY: [facility] PATIENT NAME: Taco Syed : 1955 MR: [id number] V: [id number] EXAM DATE: ORDERING PHYSICIAN: MANA AYALA TECHNOLOGIST: Location: [facility] - [place] Patient: Taco Syed : 1955 Visit/Account:[id number] Date of Sevice: 12/08/2018 US VENOUS BILAT-VASCULAR US HISTORY: Neck swelling. Long-standing central line in the right side via right IJ approach. ADDITIONAL HISTORY: None. COMPARISON: CT cervical spine 05/17/2017 which demonstrates an implanted catheter from right IJ appro ach FINDINGS: Grayscale compression, duplex and color Doppler interrogation of the venous return in both both arms was performed. Right arm: Jugular vein - occlusive thrombus is seen in the right jugular vein Subclavian vein - occlusive thrombus seen in the right subclavian vein Axillary vein - occlusive thrombus is seen in the right axillary vein Basilic vein - Negative. Cephalic vein - Negative. Brachial veins - Negative. Left arm: Jugular vein - Negative. Subclavian vein - Negative. Axillary vein - Negative. Basilic vein - Negative. Cephalic vein - Negative. Brachial veins - Negative. IMPRESSION: Acute occlusive thrombus seen in the right jugular vein, subclavian, and axillary veins. The long-st anding indwelling port is probably the inciting event. Results were called to MANA AYALA at 12/08/2018 3:33 PM. Report Dictated By: Alden Campoverde MD at 12/08/2018 3:33 PM Report E-Signed By: Alden Campoverde MD at 12/08/2018 3:45 PM WSN:[id number]
== END ==
LOC: US 14:01
PROVIDERS: ATTEND Nurse Practitioner Family
DX: I82.C11 Acute embolism and thrombosis of right internal jugular vein (principal); I82.890 Acute embolism and thrombosis of other specified veins
CPT/HCPCS: 93970

== ENCOUNTER 2018-12-22 11:00 | Outpatient (RCR) | payer MEDICARE ==
[2016-11-29 17:23] VITALS: BMI 21.0
[2018-10-13] MEDS: HEPARIN FLSH (PORT) 500 UN/5ML IVP PRN (09:41)
--- NOTE | 2018-10-13 11:06 | RADIOLOGY IMAGING REPORT ---
[place] [facility] [place] NAME: Taco Syed : 1955 MR: [id number] V: [id number] EXAM DATE: ORDERING PHYSICIAN: FLORES HOFF TECHNOLOGIST: [place] [facility] [place] Taco Syed : 1955 Visit/Account:[id number] Date of Sevice: 10/13/2018 Examination: MR brain without and with contrast History: Dizziness, tinnitus. Vestibular schwannoma. Comparison: July 01, 2017 Technique: Multiplane MR imaging was performed through the brain without and with contrast. 15 cc IV multihance was administered. Findings: Diffusion: None Ventricles: Normal Midline shift: None Extraxial fluid: None Midline craniocervical structures: Normal Parenchyma: Mild unchanged confluent periventricular white matter high signal. Enhancement: Vestibular schwannoma in the left CP angle region extending into the left internal audit ory canal measures 2.5 x 2.1 cm transverse similar to prior. This measures 2.4 cm craniocaudad, previ ously 2.3 cm. There is increased solid nodular enhancement centrally within this mass (the mass was previously more cystic nonenhancing centrally). This exerts mass effect on the left brachium pontis similar to prior. Vascular flow voids: Normal Orbits and paranasal sinuses: Normal Other: No significant additional finding. Impression: 1. Left CP angle/internal auditory canal vestibular schwannoma has minimally increased in size in the craniocaudad dimension now measuring 2.4 cm craniocaudad, previously 2.3 cm. This is unchanged in tr ansverse dimensions measuring 2.5 x 2.1 cm. There is increased central enhancement within this mass compared to prior (the central aspect of this mass was more cystic on the comparison exam). Follow-up MR is recommended in 3-4 months to document stability given interval change compared to [place] or. 2. Otherwise unremarkable brain MR without and with contrast. Report Dictated By: Rosas Rosales MD at 10/13/2018 10:51 AM Report E-Signed By: Rosas Rosales MD at 10/13/2018 11:01 AM WSN:[id number]
[2018-10-14 09:04] VITALS: BP 120/79
--- NOTE | 2018-10-14 19:05 | ONCOLOGY FOLLOW UP NOTE ---
EVENT DATE: October 14, 2018 CHIEF COMPLAINT Followup of MRI of the brain. HISTORY OF PRESENT ILLNESS Patient is a 63-year-old male who is seen today in followup. 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 He underwent autologous stem cell transplant on October 18, 2015 followed by two years of maintenance Rituxan. During that time, he was noted to have a vestibular schwannoma. He underwent radiation for this and is being monitored with routine MRI's. He presents to discuss the results of his MRI on October 13, 2018. He is doing fairly well. He denies any issues with night sweats or adenopathy but does note some ongoing fatigue. However, he is remaining active. He has "constant tinnitus" as well as some left facial numbness with intermittent sharp pains radiating from the left ear to the jaw. This has not been present for the past four days. He has minimal issues with his balance. He does describe diffuse osteoarthritis. ONCOLOGY HISTORY The patient is a 62-year-old male who had a history of diverticulitis January 2014 and colonoscopy confirmed diagnosis with the presence of sigmoid mass. The patient was treated with antibiotics. In April 2015, the patient had recurrent left lower quadrant abdominal pain and colonoscopy showed 2 mm cecal polyps which were resected. The pathology came back positive for mantle cell lymphoma. Immunohistochemistry was positive for CD5, cyclin D1, CD20 and negative for CD10, CD23. Ki67 was 30%. Bone marrow aspiration biopsy done April 2015 was positive for 1% mantle cell lymphoma. Cytogenetics was negative. PET-CT scan done April 2015 showed descending colon mass of 6 cm with SUV of 7. The distal sigmoid colon 2.2 cm mass with SUV of 8. Retroperitoneal avid lymph nodes at the level of the left frontal hilum, largest 3 cm with SUV of 4, left inguinal lymph node was SUV2, probable subcapsular focus in the liver, right axillary lymph node with SUV2. The patient was diagnosed with stage 4E mantle cell lymphoma. Hepatitis panel was negative. The patient received chemotherapy with hyper-CVAD between May 2015 through September 2015. In September 2015, the patient developed sudden of left-sided hearing loss, and MRI showed left-sided vestibular schwannoma, and the patient was seen by a neurosurgeon, who recommended close observation and continued treatment for mantle cell lymphoma. His PET/CT scan September 2015 was normal except for left lower quadrant activity increased from recent exam. Previous SUV was 5.2 and the current one was 6.7. The patient had a colonoscopy September 2015 which was normal. His bone marrow aspiration biopsy September 2015 was also normal. September 2015, stem cells were collected and CD34 count was 12 by 10(6) per kg. On October 18, 2015, the patient had his autologous stem cell transplant with R-BEAM and the patient tolerated the transplant well except for rectal pain and bleeding, which resolved prior to discharge from the bone marrow transplant center. He completed two years of maintenance rituximab therapy from December 29, 2015 through March 21, 2018. PAST MEDICAL HISTORY 1. Mantle cell lymphoma. 2. Recurrent diverticulitis. 3. Arthritis. 4. History of colon polyps. 5. History of minimal change disease of the kidney in 2014 with nephrotic syndrome, recovered completely. 6. Left sided vestibular schwannoma diagnosed September 2015. PAST SURGICAL HISTORY 1. Double hernias as a child. 2. Hernia repair in 2005. SOCIAL HISTORY The patient is . He has three sons and one daughter. He works in home improvement. He denies any abuse of tobacco, alcohol or drugs. He never smoked tobacco. FAMILY HISTORY Negative for cancer or blood diseases. CURRENT MEDICATIONS 1. Acyclovir 200 mg daily. 2. Diflucan 200 mg daily. 3. Probiotic one tablet by mouth every other day alternating with two tablets every other day. 4. Ativan 1 mg two times daily as needed for anxiety. 5. Protonix 40 mg daily. 6. Bactrim DS one tablet twice daily, two days per week. ALLERGIES No known drug allergies. REVIEW OF SYSTEMS A 12-point review of systems is performed and is negative except as stated above. PHYSICAL EXAMINATION VITAL SIGNS: BP 120/79, P 74, R 16, temperature 97.0, O2 sat 97%. GENERAL: Patient is a well-developed, well-nourished male in no acute distress. HEAD: Normocephalic, atraumatic. Symmetric. EYES: Sclerae anicteric. MOUTH: Moist mucous membranes. LUNGS: Clear bilaterally. CARDIOVASCULAR: Heart rate regular, 74 per minute without murmur, S3 or S4. EXTREMITIES: No edema. NEUROLOGICAL: Nonfocal. LABORATORY No lab today. . IMPRESSION AND PLAN The patient is a 63-year-old male diagnosed with stage IV mantle cell lymphoma with bone marrow involvement in April 2015. Completed chemotherapy with Hyper- CVAD between May 2015 through September 2015. Underwent autologous stem cell transplant on October 18, 2015. Completed two years of maintenance Rituxan from December 29, 2015 through March 21, 2018. 1. Mantle cell lymphoma, currently in remission. He will continue close followup with Dr. Miles. 2. Vestibular schwannoma. MRI of the brain on October 13, 2018 showed a slight increase in size of the schwannoma from 2.3 cm to 2.4 cm. Also noted was increased central enhancement within the mass, previously described as more cystic. The recommendation is to repeat the MRI in three to four months. After discussion with the patient, we will schedule repeat MRI at the end of December 2018 to reevaluate this. I also discussed this with Dr. Mejia who reviewed his films. He concurred with repeating MRI in 3 months. Patient is instructed to notify us if he feels his symptoms are worsening. 3. Health care maintenance. He will undergo colonoscopy per Dr. Hendricks next week. 4. Followup with Dr. Miles on January 29, 2019 after MRI. CBC, CMP, LDH and uric acid will be done on January 27, 2018. . MTDD
[2018-10-27 08:19] VITALS: BP 133/87
--- NOTE | 2018-11-12 15:53 | NUR ---
Left patient a message to call and schedule to receive vaccines.
--- NOTE | 2018-12-03 16:30 | NUR ---
CALLED PT, LEFT VOICEMAIL. OUR PHARMACY DOES NOT CARRY THE IMMUNIZATIONS HE NEEDS DUE TO IT BEING AN INPATIENT PHARMACY. OUR PHARMACY STAFF CALLED OVER TO [facility]. [facility] DOES HAVE ALL REQUIRED IMMUNIZATIONS AND THE PT JUST NEEDS TO CALL THEM TO MAKE ARRANGEMENTS.
[~2018-12-22 11:00] MED LIST changes: +ALTEPLASE RECOMB 2 MG VIAL IVP PRN; +DEXTROSE 5%(*) 100 ML BAG 100 ML IVPB PRN; +GADOBENATE 529MG/1ML 15ML VIAL IVP ONE; +LIDOCAINE/SOD BICARB 8.4% SYR ID PRN; +NS(*) 0.9% 100 ML BAG 100 ML IVPB PRN; +NS(*) 0.9% 500 ML BAG 500 ML IV PRN; +WATER FOR INJ,STERILE 20 ML IVP PRN
[2018-12-22 11:05] VITALS: BP 116/78
[2018-12-22] MEDS: HEPARIN FLSH (PORT) 500 UN/5ML IVP PRN (11:13)
[2018-12-24] MEDS ORDERED: IPRA15SP7 NS (09:40)
[2019-01-09] MEDS ORDERED: APIX5TAB PO (14:23)
[2019-01-09] MEDS ORDERED: [UNRECOGNIZED DRUG - CODE] OP (14:26)
[2019-01-09] MEDS ORDERED: ACYC800T99 PO (14:26)
[2019-01-09] MEDS ORDERED: FLUC200T56 PO (14:27)
[2019-01-12] MEDS ORDERED: HYDR-653 PO (10:53)
[2019-01-12] MEDS ORDERED: CEFU500T10 PO (10:54)
== END 2019-01-11 ==
LOC: SPU 11:00
PROVIDERS: ATTEND Internal Medicine Hematology
DX: C83.19 Mantle cell lymphoma, extranodal and solid organ sites (principal); D33.3 Benign neoplasm of cranial nerves; Z94.84 Stem cells transplant status; Z92.21 Personal history of antineoplastic chemotherapy; Z92.3 Personal history of irradiation
CPT/HCPCS: 36415; 70553; 86317; 86658; 86706; 86735; 86762; 86765; 96523; A9577; G0463; J1642; 99212

== ENCOUNTER → 2019-01-07 | Outpatient (CLI) | payer MEDICARE ==
[2016-11-29 17:23] VITALS: BMI 21.0
[~2019-01-07] MED LIST changes: -ALTEPLASE RECOMB 2 MG VIAL IVP PRN; -DEXTROSE 5%(*) 100 ML BAG 100 ML IVPB PRN; -GADOBENATE 529MG/1ML 15ML VIAL IVP ONE; +IPRA15SP7 NS; -LIDOCAINE/SOD BICARB 8.4% SYR ID PRN; -NS(*) 0.9% 100 ML BAG 100 ML IVPB PRN; -NS(*) 0.9% 500 ML BAG 500 ML IV PRN; -WATER FOR INJ,STERILE 20 ML IVP PRN
[2019-01-07 08:28] LABS: PLATELET COUNT, AUTOMATED 339 K/uL (150-450)
--- NOTE | 2019-01-07 08:37 | EKG ---
FACILITY: [facility] - [place] PATIENT NAME: LATRICE JACINTO : [id number] MR: [id number] V: [id number] EXAM DATE: ORDERING PHYSICIAN: GRACIELA BANUELOS TECHNOLOGIST: Test Reason : Pre-op Blood Pressure : / mmHG Vent. Rate : 071 BPM Atrial Rate : 071 BPM P-R Int : 142 ms QRS Dur : 084 ms QT Int : 398 ms P-R-T Axes : 066 001 043 degrees QTc Int : 432 ms Normal sinus rhythm with sinus arrhythmia Normal ECG When compared with ECG of 17-MAY-2017 12:03, No significant change was found Confirmed by RAMON NEGRON ([id number]) on 01/07/2019 4:34:21 PM Referred By: Confirmed By:RAMON NEGRON
== END ==
LOC: LAB 08:02
PROVIDERS: ATTEND Otolaryngology
DX: Z01.810 Encounter for preprocedural cardiovascular examination (principal)
CPT/HCPCS: 36415; 82040; 82247; 82310; 82374; 82435; 82565; 82947; 84075; 84132; 84155; 84295; 84450; 84460; 84520; 85025; 93005

== ENCOUNTER 2019-01-12 01:52 | Day surgery (SDC) | payer MEDICARE ==
[2016-11-29 17:23] VITALS: Ht 170.2 cm; Wt 69.9 kg
[~2019-01-12] VITALS: Ht 170.2 cm; Wt 69.9 kg
[~2019-01-12 01:52] MED LIST changes: +[UNRECOGNIZED DRUG - CODE] OP
[2019-01-12] MEDS ORDERED: PROPOFOL EMUL(*) 10MG/ML 20 ML 20 ML ONE (08:10)
[2019-01-12] MEDS ORDERED: ONDANSETRON 4 MG/2 ML VIAL ONE (08:10)
[2019-01-12] MEDS ORDERED: LIDOCAINE MPF 1% 5 ML VIAL ONE (08:10)
[2019-01-12] MEDS ORDERED: fentaNYL CITR 100 MCG/2 ML AMP ONE ×3 (08:10→10:35)
[2019-01-12] MEDS: LIDOCAINE/SOD BICARB 8.4% SYR ID ONE ×2 (08:24→08:45)
[2019-01-12 08:44] VITALS: BP 119/79
[2019-01-12] MEDS ORDERED: MIDAZOLAM 2 MG/2 ML VIAL IVP PRN (08:45)
[2019-01-12] MEDS ORDERED: ceFAZolin(*) 2GM/D5W 50ML 50 ML IVPB ONE (08:45)
[2019-01-12] MEDS ORDERED: NORMOSOL R SOLN(*) 1000 ML BAG 1,000 ML IV PRN (08:45)
[2019-01-12] MEDS ORDERED: BACITRACIN OINT 15 GM TUBE TP ONE (09:11)
[2019-01-12] MEDS ORDERED: NS(*) 0.9% 250 ML BAG 250 ML ONE (09:11)
[2019-01-12] MEDS ORDERED: OXYMETAZOLINE SPRAY 15 ML BTL ONE (09:11)
[2019-01-12] MEDS ORDERED: KETAMINE HCL 200 MG/20 ML MDV ONE (09:30)
[2019-01-12] MEDS ORDERED: ePHEDrine 25 MG/5 ML DISP.SYR IVP ONE (09:43)
[2019-01-12] MEDS ORDERED: HYDR-653 PO (10:53)
[2019-01-12] MEDS ORDERED: CEFU500T10 PO (10:54)
[2019-01-12 11:07] VITALS: BP 143/87
[2019-01-12 11:15] VITALS: BP 139/91
[2019-01-12] MEDS ORDERED: APAP/HYDROCODONE 325/5 TAB PO PRN (11:15)
[2019-01-12 12:00] VITALS: BP 122/81
[2019-01-12 12:05] VITALS: BP 125/86
[2019-01-12 12:06] VITALS: BP 118/86
--- NOTE | 2019-01-12 12:35 | NUR ---
1107 SBAR REPORT FROM Neetu WILLS RN, VSS PAIN 5/10 IN TEETH 1115 PARTNER CECILIA AT BEDSIDE, TOLERATING PUDDING AND ICE CHIPS 1122 FIRST ORAL PAIN PILL GIVEN, PT WOULD LIKE TO REST FOR A BIT, SURGICAL PAIN INCREASING 7/10, INCREASED DRAINAGE TO MOUSTACHE DRESSING, NOT SATURATED. PT TOLERATING SECOND PUDDING. 1140 SBAR REPORT GIVEN TO Brent CHUN RN
--- NOTE | 2019-01-12 12:44 | OPERATIVE REPORT 1 ---
EVENT DATE: January 12, 2019 SURGEON: Wallace Sapp MD ANESTHESIOLOGIST: Ankur Poe MD ANESTHESIA: LMA. PROCEDURES PERFORMED 1. Septoplasty. 2. Submucous resection of bilateral inferior turbinates. PREOPERATIVE DIAGNOSES 1. Nasal septal deviation. 2. Bilateral inferior turbinate hypertrophy. POSTOPERATIVE DIAGNOSES 1. Nasal septal deviation. 2. Bilateral inferior turbinate hypertrophy. INDICATIONS Please refer to preoperative note. DESCRIPTION OF PROCEDURE The patient was positively identified in the preoperative area. He was there alone. Risks were again explained including, but not limited to, bleeding, infection, nasoseptal perforation and those associated with anesthesia. The patient acknowledged understanding those risks. He was then brought back to the operative suite, laid supine on the operative table and anesthesia was administered. Once asleep, the patient was positioned and then prepped and draped in usual sterile fashion. The nasal cavity was initially decongested by injecting approximately 10 cc's of 1% lidocaine with epinephrine to the bilateral anterior nasoseptal mucosa and along the face of the bilateral anterior turbinates. Both nasal cavities were subsequently packed with cottonoids containing Afrin solution. These were subsequently removed and nasal endoscopy was performed. This was notable for left septal deviation and right inferior septal spur. A Yandel incision was made in the left anterior nasoseptal cartilage. A subperichondrial flap was elevated. I then incised the anterior inferior septal cartilage approximately 5 mm posterior to the original Yandel incision. A contralateral flap was raised. The deviated portion of the patient's nasoseptal cartilage and bone was then removed. The Yandel incision was then reapproximated with interrupted Chromic suture. I then addressed the inferior turbinates. A stab incision was made at the face of the left inferior turbinate. A caudal elevator was utilized to elevate the mucosa off the underlying bone. A submucous resection was then performed with the turbinate blade of the microdebrider. The stab incision was then cauterized and suctioned with Bovie electrocautery. The contralateral inferior turbinate was addressed in a similar fashion. Bilateral nasoseptal splints were placed and secured to the columella-septal suture. The patient was then turned to Anesthesia for emergence. ESTIMATED BLOOD LOSS 25 mL. COMPLICATIONS No complications. [facility]
--- NOTE | 2019-01-12 12:51 | NUR ---
1142: gauze changed, moderate drainage 1150: discharge instructions given to pt and spouse, they state understanding 1200: pt states desire to go home 1205: orthostatic bps taken, no significant change noted
--- NOTE | 2019-01-12 12:55 | NUR ---
1211: iv dc'ed with cath intact, minimal discomfort noted. pressure dressing applied. 1214: while pt was putting on his jacket he bent down and brushed his nose with the jacket. 1215:while walking out of the building I noticed a minimal amount of drainage on the pt mustache dressing. I reinforced teaching about when to seek medical care, how to change dressing, and avoiding pressure inducing positions. 1216: pt was walked to car
== END 2019-01-12 11:07 | disposition home or self-care (01) ==
LOC: OR 01:52
PROVIDERS: ATTEND Otolaryngology
DX: J34.3 Hypertrophy of nasal turbinates (principal); J34.2 Deviated nasal septum
CPT/HCPCS: 30140; 30520; A9270; J2001; J2405; J2704; J3010; J3490; J7050; J0690

== ENCOUNTER → 2019-01-26 | Outpatient (CLI) | payer MEDICARE ==
[2016-11-29 17:23] VITALS: BMI 21.0
[~2019-01-26] MED LIST changes: +AMOX500T10 PO; +CEFU500T10 PO; +GADOBENATE 529MG/1ML 15ML VIAL IVP ONE; -HYDR-67 PO; +[UNRECOGNIZED DRUG - CODE] PO
== END ==
LOC: MRI 09:01
PROVIDERS: ATTEND Nurse Practitioner
DX: C83.19 Mantle cell lymphoma, extranodal and solid organ sites (principal)
CPT/HCPCS: 70553; A9577

== ENCOUNTER 2019-01-29 16:00 | Outpatient (RCR) | payer MEDICARE ==
[2016-11-29 17:23] VITALS: Wt 73.8 kg
[2019-01-26 08:59] LABS: PLATELET COUNT, AUTOMATED 335 K/uL (150-450)
--- NOTE | 2019-01-26 11:47 | RADIOLOGY IMAGING REPORT ---
FACILITY: [facility] - [place] PATIENT NAME: Taco Syed : 1955 MR: [id number] V: [id number] EXAM DATE: ORDERING PHYSICIAN: FLORES HOFF TECHNOLOGIST: Location: [facility] - [place] Patient: Taco Syed : 1955 Visit/Account:[id number] Date of Sevice: 01/26/2019 EXAMINATION: MRI Brain without intravenous contrast MRI Brain with intravenous contrast HISTORY: Vestibular schwannoma. COMPARISON: 10/13/2018. 09/19/2015. TECHNIQUE: Multi-planar, multi-sequence brain MRI was performed before and after IV gadolinium. CONTRAST: 15 mL of IV MultiHance FINDINGS: Brain volume: Normal. Sagittal midline structures: Negative. Ventricles: Negative. Acute ischemic changes: None. Hemorrhage: None. Masses / edema: Stable T1 hypointense, T2 hyperintense, enhancing mass in the left cerebellar pontin e angle cistern slightly extending into the internal auditory canal consistent with vestibular schwan noma. The tumor measures approximately 2.4 x 2.2 x 2.1 cm. Enhancement: Otherwise no abnormal enhancement. Sanchez-white: Negative. White matter: Negative. Vessels: Negative. Extra-axial: Negative. Calvarium / scalp: Negative. Skull base: Negative. Visualized sinuses / orbits: Mild to moderate mucosal thickening in the paranasal sinuses with leftw arcadio nasal septal deviation. Postop endoscopic sinus surgery. Slightly worsened compared with 10/13/20 18. Visualized upper neck: Negative. IMPRESSION: 1. Stable left vestibular schwannoma measuring approximately 2.4 x 2.2 x 2.1 cm. 2. Slightly worsened mucosal thickening in the paranasal sinuses compared with 10/13/2018. Report Dictated By: Derian Mcnally MD at 01/26/2019 11:12 AM Report E-Signed By: Derian Mcnally MD at 01/26/2019 11:42 AM WSN:[id number]
[~2019-01-29 16:00] MED LIST changes: +ALTEPLASE RECOMB 2 MG VIAL IVP PRN; +DEXTROSE 5%(*) 100 ML BAG 100 ML IVPB PRN; -GADOBENATE 529MG/1ML 15ML VIAL IVP ONE; +HEPARIN FLSH (PORT) 500 UN/5ML IVP PRN; +LIDOCAINE/SOD BICARB 8.4% SYR ID PRN; +NS(*) 0.9% 100 ML BAG 100 ML IVPB PRN; +NS(*) 0.9% 500 ML BAG 500 ML IV PRN; -PENT400T57 PO; +PENT400T83 PO; +WATER FOR INJ,STERILE 20 ML IVP PRN
[2019-01-29 16:05] VITALS: BP 116/75
--- NOTE | 2019-01-29 22:50 | ONCOLOGY FOLLOW UP NOTE ---
EVENT DATE: January 29, 2019 DIAGNOSES 1. Stage IV mantle cell lymphoma with bone marrow involvement. 2. Status post autologous stem cell transplant. 3. Recurrent diverticulitis. 4. Arthritis. 5. History of colonic polyp, tubulovillous adenoma, status post polypectomy January 2014. 6. History of minimal change disease of the kidney in 2004 with nephrotic syndrome, recovered completely. 7. Left-sided vestibular schwannoma, diagnosed September 2015. CHIEF COMPLAINT Patient is here today for followup on his mantle cell lymphoma after autologous stem cell transplant and maintenance rituximab therapy. He recently had surgery on 01/12/19 for deviated nasal septum. ONCOLOGY HISTORY The patient is a 63-year-old male who had a history of diverticulitis January 2014, and colonoscopy confirmed diagnosis with the presence of sigmoid mass. The patient was treated with antibiotics. In April 2015, the patient had recurrent left lower quadrant abdominal pain, and colonoscopy showed 2 mm cecal polyps which were resected. The pathology came back positive for mantle cell lymphoma. Immunohistochemistry was positive for CD5, cyclin D1, CD20, and negative for CD10, CD23. Ki67 was 30%. Bone marrow aspiration biopsy done April 2015 was positive for 1% mantle cell lymphoma. Cytogenetics was negative. PET CT scan done April 2015 showed descending colon mass of 6 cm with SUV of 7. The distal sigmoid colon 2.2 cm mass with SUV of 8, retroperitoneal avid lymph nodes at the level of the left frontal hilum, largest 3 cm with SUV of 4, left inguinal lymph node was SUV2, probable subcapsular focus in the liver, right axillary lymph node with SUV2. The patient was diagnosed with stage ZAIDA mantle cell lymphoma. Hepatitis panel was negative. The patient received chemotherapy with hyper-CVAD between May 2015 through September 2015. In September 2015, the patient developed sudden left-sided hearing loss, and MRI showed left-sided vestibular schwannoma. The patient was seen by a neurosurgeon, who recommended close observation and continued treatment for mantle cell lymphoma. His PET CT scan September 2015 was normal except for left lower quadrant activity increased from recent exam. Previous SUV was 5.2, and the current one was 6.7. The patient had a colonoscopy September 2015, which was normal. His bone marrow aspiration biopsy September 2015 was also normal. September 2015, stem cells were collected, and CD34 count was 12 by 10(6) per kg. On October 18, 2015, the patient had his autologous stem cell transplant with R-BEAM, and the patient tolerated the transplant well except for rectal pain and bleeding, which resolved prior to [facility]. They recommended maintenance rituximab therapy after the autologous stem cell transplant. The patient started maintenance rituximab therapy on December 29, 2015. The patient completed 12 courses of rituximab therapy on March 18, 2018. HISTORY OF PRESENT ILLNESS Patient is here today for followup of his mantle cell lymphoma after autologous stem cell transplant and maintenance rituximab therapy. Overall, he is doing well. He has had some sinus congestion, which he noted at his last visit, as well as some generalized aches. He is now status post surgery for deviated nasal septum. He will be following up with his ENT, Dr. Sapp, next Saturday. He tells me that he does not feel significant improvement after his surgery. He does still report some general stuffiness on the left side. He has history of numbness in the left of his face and also has occasional headaches. He tells me that he had a recent colonoscopy in October 2018. He is quite concerned about findings of three polyps which were removed as he reports that this was seen on his initial colonoscopy prior to being diagnosed with mantel cell lymphoma. Lastly, he is also concerned about Eliquis which he is on for PE. Apparently, the patient had a venogram done in November of this year, which revealed an occlusive thrombus seen in the right jugular vein, subclavian and axillary veins. These were occlusive thrombi. Radiology report mentions that the long- standing indwelling port was likely the inciting event. The patient remains with the right chest wall Port-A-Cath. He is tolerating Eliquis well. PAST MEDICAL HISTORY 1. Mantle cell lymphoma. 2. Recurrent diverticulitis. 3. Arthritis. 4. History of colon polyps. 5. History of minimal change disease of the kidney in 2014 with nephrotic syndrome, recovered completely. 6. Left sided vestibular schwannoma diagnosed September 2015. PAST SURGICAL HISTORY 1. Double hernias as a child. 2. Hernia repair in 2005. SOCIAL HISTORY The patient is . He has three sons and one daughter. He works in home improvement. He denies any abuse of tobacco, alcohol, or drugs. He never smoked tobacco. FAMILY HISTORY Negative for cancer or blood diseases. CURRENT MEDICATIONS 1. Acyclovir 200 mg daily. 2. Diflucan 200 mg daily. 3. Probiotic one tablet by mouth every other day alternating with two tablets every other day. 4. Ativan 1 mg two times daily as needed for anxiety. 5. Protonix 40 mg daily. 6. Compazine 10 mg p.r.n. for nausea and vomiting q.6 hours. 7. Bactrim DS one tablet twice daily two days per week. 8. Tapering doses of prednisone. 9. Eliquis b.i.d. ALLERGIES No known drug allergies. REVIEW OF SYSTEMS CONSTITUTIONAL: Patient denies any significant fevers, chills, night sweats, or infections. He did take two courses of antibiotics while he had surgery for his nasal septum. He reports fatigue. HEENT: He reports some increased head ringing for the last three weeks, though reports that he does have some head ringing at baseline. He is also using some [id number] eye drops. RESPIRATORY: Patient has an occasional cough with expectoration. He denies any shortness of breath. No hemoptysis. No further chest pain. CARDIOVASCULAR: No chest pain, no palpitations, no syncope or presyncope. GASTROINTESTINAL: He reports a small bulge over his umbilicus. No nausea or vomiting. He denies any constipation or diarrhea and no other changes in bowel movements. He reports normal appetite. No rectal bleeding. He reports recent colonoscopy in October 2018. MUSCULOSKELETAL: He has some generalized joint pains. ENDOCRINE: Patient reports fatigue, which he has had normally, though reports that he believes over the three to four months that this has worsened. NEUROLOGIC: He has numbness over the left side of his face and also has an occasional headache. He has had balance disturbance since being diagnosed with his schwannoma and tells me that this may be somewhat worsened, though he feels that he has compensated appropriately. He denies any interference with ADLs. HEMATOLOGIC/LYMPHATICS: No bleeding or easy bruising. PSYCHIATRIC: He denies any severe anxiety, severe depression, suicidal or homicidal ideation. The remainder of a 12-point review of systems was performed today and was otherwise negative. PHYSICAL EXAMINATION VITAL SIGNS: Weight 162.8 pounds, temperature 96.7 degrees Fahrenheit, pulse 87, respirations 16, BP 116/75, oxygen saturation 94% room air. HEAD: Atraumatic, normocephalic. Palpation of the sinuses was deferred today as patient is having some pain related to his recent nasal surgery. EYES: Sclerae anicteric. ENT/MOUTH: No mucositis. NECK: Supple. No lymphadenopathy. No JVD. LUNGS: Clear breath sounds to auscultation, diminished at the bases bilaterally. No shortness of breath on exam. Respiratory effort is normal. CARDIOVASCULAR: Regular rate and rhythm. No ectopy. ABDOMEN: There is a small upper umbilical hernia noted. Otherwise, soft, nontender, nondistended. NEUROLOGIC: Patient is awake, alert, oriented x3. PSYCHIATRIC: Mood and affect are appropriate. DERM: No rash. No bruises, no petechiae, no purpuric eruption. LABORATORY CBC on 01/26/2019: WBC 5.2, ANC 2.7, hemoglobin 15.6, hematocrit 46.0%, platelets 335,000. CMP on 01/26/2019: All unremarkable other than a mildly elevated glucose at 122. LDH is normal at 435. IMAGING MRI of the brain on 01/26/2019: 1. Stable left vestibular schwannoma measuring approximately 2.4 x 2.2 x 2.1 cm. 2. Slightly worse mucosal thickening in the paranasal sinuses compared with 10/13/18. 3. Exam was compared to 10/13/2018 and 09/19/2015. IMPRESSION AND PLAN Stage ZAIDA mantle cell lymphoma with low-risk MIPI score. Patient completed two cycles of hyper-CVAD and attained a PET CT scan negative, complete remission. Subsequently, he underwent autologous stem cell transplant after complete remission, received October 18, 2015, after R-beam chemotherapy. PET CT scan and bone marrow aspiration biopsy done January 2016 were negative for recurrent disease. Patient started maintenance rituximab therapy December 29, 2015, and he completed 12 courses of rituximab every two months on March 21, 2018. He is currently in complete remission. Plan is to continue with surveillance. We are currently seeing him on an every four-month basis with appropriate labs. He also has a history of a schwannoma, and we are checking serial MRIs. Lastly, he recently had repeat colonoscopy which was unremarkable with the exception of three polyps. 1. Stage ZAIDA mantle cell lymphoma with low-risk MIPI score. Patient is currently in complete remission and completed 12 courses of rituximab with his last dose given in March 2018. We will continue to follow up with repeat labs to include at least CBC, CMP, LDH, and uric acid. Most recent labs were normal, and these were reviewed with patient and his today. 2. Pulmonary embolism, currently on Eliquis. This will be managed by Lavonne Whitaker. Patient will continue on Eliquis. He did have a venogram which revealed acute thrombi in the right jugular, subclavian, and axillary veins, and he does have a right-sided Port-A-Cath which was thought to be the issue causing the acute thrombi. He is questioning whether or not he should have his port removed. He is currently not on active treatment and, therefore, this could be removed; however, I explained to the patient that I will first discuss this with his medical oncologist, Dr. Miles. There is also the issue of the patient needing to stop his anticoagulation for any kind of procedure/surgery. Patient verbalized understanding. 3. Schwannoma with cerebral symptoms and ringing of the ear. Currently has recent numbness of the left side of the face, and repeat MRI of the brain done 01/26/19 was largely stable. This was reviewed with patient today. His numbness has improved, though he continues with ringing in the ear. Offered P.T though he declined, citing that he's done this in the past. 4. Recurrent diverticulitis of the colon with preparation of the colon, status post colectomy and takedown colostomy: Currently doing well. 5. History of colon polyps, status post polypectomy in January 2014 for villous adenoma. He is up to date with colonoscopy, most recently done in October 2018. I will make sure that his medical oncologist has seen results. He did have three tubular adenomas and polyps removed. 6. He does have a history of minimal change in disease of the kidney with nephrotic syndrome in 2004, currently in remission. 7. Patient will return to the clinic in four months for followup and repeat labs with CBC, CMP, LDH, and uric acid. 8. We may be repeating imaging of the brain at that time as well if ongoing symptoms of ringing in the ear persists. 9. Patient will be returning to follow up with his ENT next week as he is status post nearly one month since surgery for deviated nasal septum. 10. Patient was given signs and symptoms of when to call our office. MEI
[2019-02-03] MEDS ORDERED: MOXOD OS (13:57)
[2019-02-03] MEDS ORDERED: FLUT16SP19 (13:57)
== END 2019-04-23 ==
LOC: ONC 16:00
PROVIDERS: ATTEND Internal Medicine Hematology
DX: Z85.72 Personal history of non-Hodgkin lymphomas (principal); I26.99 Other pulmonary embolism without acute cor pulmonale; Z79.01 Long term (current) use of anticoagulants; D36.10 Benign neoplasm of peripheral nerves and autonomic nervous system, unspecified; K57.92 Diverticulitis of intestine, part unspecified, without perforation or abscess without bleeding
CPT/HCPCS: 36591; 70553; 82784; 83036; 83615; 84443; 84550; 85025; A9577; G0463; J1642; 82040; 82247; 82310; 82374; 82435; 82465; 82565; 82947; 83718; 84075; 84132; 84155; 84295; 84450; 84460; 84478; 84520; 99212

== ENCOUNTER → 2019-03-24 | Outpatient (CLI) | payer MEDICARE ==
[2016-11-29 17:23] VITALS: BMI 21.0
[~2019-03-24] MED LIST changes: -ALTEPLASE RECOMB 2 MG VIAL IVP PRN; -DEXTROSE 5%(*) 100 ML BAG 100 ML IVPB PRN; +FLUT16SP19; -HEPARIN FLSH (PORT) 500 UN/5ML IVP PRN; -LIDOCAINE/SOD BICARB 8.4% SYR ID PRN; +MOXOD OS; -NS(*) 0.9% 100 ML BAG 100 ML IVPB PRN; -NS(*) 0.9% 500 ML BAG 500 ML IV PRN; +PENT400T57 PO; -PENT400T83 PO; -WATER FOR INJ,STERILE 20 ML IVP PRN
[2019-03-24 12:54] LABS: PLATELET COUNT, AUTOMATED 375 K/uL (150-450)
[2019-03-24 13:03] LABS: LDL CHOLESTEROL 142 mg/dl
== END ==
LOC: SPU 08:14
PROVIDERS: ATTEND Nurse Practitioner Family
DX: C47.9 Malignant neoplasm of peripheral nerves and autonomic nervous system, unspecified (principal); C83.15 Mantle cell lymphoma, lymph nodes of inguinal region and lower limb; R73.03 Prediabetes; R53.83 Other fatigue; E78.00 Pure hypercholesterolemia, unspecified; D84.9 Immunodeficiency, unspecified; R09.81 Nasal congestion
CPT/HCPCS: 82040; 82247; 82310; 82374; 82435; 82465; 82565; 82784; 82947; 83036; 83718; 84075; 84132; 84155; 84295; 84443; 84450; 84460; 84478; 84520; 85025

== ENCOUNTER → 2019-04-23 | Outpatient (CLI) | payer MEDICARE ==
[2016-11-29 17:23] VITALS: BMI 21.0
[~2019-04-23] MED LIST changes: -PENT400T57 PO; +PENT400T83 PO
--- NOTE | 2019-04-23 13:01 | RADIOLOGY IMAGING REPORT ---
FACILITY: [facility] PATIENT NAME: Taco Syed : 1955 MR: [id number] V: [id number] EXAM DATE: ORDERING PHYSICIAN: MANA AYALA TECHNOLOGIST: Location: [facility] Patient: Taco Syed : 1955 Visit/Account:[id number] Date of Sevice: 04/23/2019 EXAMINATION: PA and Lateral Chest 04/23/2019 11:04 AM HISTORY: Cough, congestion COMPARISON: 11/28/2016 FINDINGS: Cardiomediastinal contours: Normal contours. Port catheter enters on the right with the tip over the lower SVC. Lungs and pleura: Negative. Right lower lung aeration has virtually normalized with minimal residual scarring. Costophrenic angles are sharp. Bones/soft tissues: Normal IMPRESSION: No acute cardiopulmonary abnormality. Report Dictated By: Taco Kam MD at 04/23/2019 12:55 PM Report E-Signed By: Taco Kam MD at 04/23/2019 12:56 PM WSN:[email or web address]
== END ==
LOC: RAD 10:59
PROVIDERS: ATTEND Nurse Practitioner Family
DX: R05 Cough (principal)
CPT/HCPCS: 71046